=== PATIENT | male | born 1975 | race American Indian/Alaskan Native ===

== ENCOUNTER 2022-02-04 09:46 | Outpatient (CLI) | payer OTHER ==
--- NOTE | 2022-02-04 10:48 | XRay Report ---
LUMBOSACRAL SPINE 3 VIEWS INDICATION: BACK PAIN. COMPARISON: None. IMPRESSION: Normal alignment. 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 The remaining disc levels and facet joints are unremarkable. The SI joints are within normal limits. No acute osseous or soft tissue abnormality. Signer Name: Nicholas Fraser Jr, MD Signed: 02/04/2022 10:43 AM Workstation Name: [id number]
== END 2022-02-04 09:47 | disposition home or self-care (01) ==
LOC: XRAY 09:46
PROVIDERS: ATTEND Internal Medicine
DX: Z02.71 Encounter for disability determination (principal); M47.817 Spondylosis without myelopathy or radiculopathy, lumbosacral region
CPT/HCPCS: 72100